=== PATIENT | male | born 1960 | race Caucasian/White ===

== ENCOUNTER 2023-04-18 17:47 | Observation (INO) | payer BC, SELFPAY ==
[2023-04-18] VITALS (14 sets, daily range): BP systolic 125–135; BP diastolic 70–82; PULSE 90–99; RESP 15–23; TEMP 37.1–37.4; O2SAT 95–99; BMI 26.5; BMI 27.0
--- NOTE | 2023-04-18 18:07 | ECG_ITS ---
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
--- NOTE | 2023-04-18 18:17 | CT_ITS ---
[address] [address] Patient Name: ADITHYA DORANTES MRN: [id number] date: 1960 Sex: M Assigned Patient Location: ER Current Patient Location: ED.MAIN Accession/Order Number: [id number] Exam Date: 04/18/2023 18:35 Report Date: 04/18/2023 19:28 At the request of: FREDDIE KIM Procedure: CT angio chest EXAMINATION: CT angio chest, 04/18/2023 6:35 PM EDT HISTORY: Shortness of breath, chest pain COMPARISON: None. TECHNIQUE: CT angiography of the chest was performed with IV contrast. MIP (maximum intensity projection) images or 3D post processing was performed. CT dose reduction technique was used, including Automated Exposure Control. FINDINGS: VASCULATURE/PULMONARY ARTERIES: There is satisfactory opacification of the pulmonary arterial system. There is no evidence of pulmonary embolism. The main pulmonary artery is normal in diameter. The aorta and great vessels appear normal. HEART/PERICARDIUM: Normal. MEDIASTINAL/HILAR LYMPH NODES: No lymphadenopathy. ESOPHAGUS: Normal as visualized. PLEURAL CAVITY: Trace bilateral pleural effusions. No evidence of pneumothorax. LUNGS/AIRWAYS: Bibasilar airspace opacities which may represent subsegmental atelectasis or infiltrates. CHEST WALL/AXILLA/LOWER NECK: Mild bilateral symmetric gynecomastia. VISUALIZED UPPER ABDOMEN: Normal. BONES: No acute process. IMPRESSION: 1. No evidence of pulmonary embolism. 2. Bibasilar subsegmental atelectasis versus infiltrates. Trace bilateral pleural effusions. 3. Mild bilateral symmetric gynecomastia. Electronically authenticated by: ANDREW GAYTAN Date: 04/18/2023 19:28
--- NOTE | 2023-04-18 18:18 | ED_ITS ---
Documented by User: Diego Mark 04/18/23 19:02 HPI - General Adult General Chief complaint: Chest Pain Stated complaint: weakness, chest Time Seen by Provider: 04/18/23 18:06 Source: patient and family Mode of arrival: walk-in Limitations: no limitations History of Present Illness HPI narrative: patient presents with more than one week of fatigue, shortness of breath, pain in the joints of both legs and dry cough. Poor appetite but no nausea, vomiting, diarrhea or abdominal pain. No flank pain. Patient denied chest pain or pressure or tightness. His PMHx is negative and he does not usually take medications. He was evaluated a couple of weeks ago at [facility] for scrotal swelling and pain and was found to have hydrocele. He may also have had epididymitis. he saw a urologist and was placed on extended course of Levaquin, which he has been taking and has a few doses left. told me that he initially had fevers and scrotal pain with the swelling but lately he has felt hot but mostly had night sweats. He said that his scrotal swelling and pain have gone away and everything there is back to normal. Last dose of naproxen around 930am Other symptoms include a rash to the back shortly after starting the Levaquin that went away on its own. he also experienced profound fatigue, lethargy and has difficulty performing ADLs. said he sleeps most fo the day, The pain in his hips and knees is also unusual for him. He has no known exposures but he went camping prior to all of this starting. Related Data Home Medications Medication Instructions Recorded Confirmed levofloxacin 500 mg tablet 500 mg PO Q12H 04/18/23 04/18/23 naproxen 500 mg tablet 500 mg PO Q12H PRN pain 04/18/23 04/18/23 Allergies Allergy/AdvReac Type Severity Reaction Status Date / Time No Known Drug Allergies Allergy Verified 04/18/23 18:06 Exam Narrative Exam Narrative: Nurses notes and vital signs reviewed and patient is not hypoxic. afebrile but feels warm to the touch General: Well-appearing and in no apparent distress. Skin: Warm, dry, no pallor noted. No rash on back or elsewhere. Head: Normocephalic, atraumatic. Neck: Supple, non-tender. Eye: Pupils are equal, round and EOMI. No scleral icterus. Ears, Nose, Mouth, and Throat: Oral mucosa is dry. no oral lesions Cardiovascular: Tachycardia Respiratory: No accessory muscle use or respiratory distress. Lungs are clear to auscultation, no wheezing, rales or rhonchi Chest Wall: no tenderness, crepitus or subcutaneous emphysema Back: No midline thoracic or lumbar vertebral tenderness. No CVA tenderness Musculoskeletal: weakly moves all extremities. No calf or popliteal tenderness, no lower extremity edema/swelling. Pain with movement of the knees and ankles but not with movement of the hips. Soft tissue tenderness of the anterior thigs but not the posterior thighs or popliteal spaces bilaterally. GI: Abdomen is soft, non-distended. Normal bowel sounds. No masses appreciated. No tenderness to palpation. No rebound, guarding, or rigidity noted. Neurological: A&O x4. No cranial nerve dysfunction observed. No truncal ataxia. Moves all extremities. Sensation intact. Psychiatric: Cooperative and interactive. Normal mood and affect. Constitutional Vital Signs - 24 hr 04/18/23 18:02 Temperature 98.7 F Pulse Rate [Monitor] 98 H Respiratory Rate 18 Blood Pressure [Right Arm] 134/74 H Pulse Oximetry 99 Oxygen Delivery Method Room Air Course Vital Signs Vital signs: Vital Signs Temperature 98.7 F 04/18/23 18:02 Pulse Rate 98 H 04/18/23 18:02 Respiratory Rate 18 04/18/23 18:02 Blood Pressure 134/74 H 04/18/23 18:02 Pulse Oximetry 99 04/18/23 18:02 Oxygen Delivery Method Room Air 04/18/23 18:02 Temperature 98.7 F 04/18/23 18:02 Pulse Rate 98 H 04/18/23 18:02 Respiratory Rate 18 04/18/23 18:02 Blood Pressure 134/74 H 04/18/23 18:02 Pulse Oximetry 99 04/18/23 18:02 Oxygen Delivery Method Room Air 04/18/23 18:02 Medical Decision Making MDM Narrative Medical decision making narrative: the recent hydrocele +/- epididymitis then progressing to the current symptoms of fatigue, myalgias and arthralgias with dry cough. No GI symptoms. No urinary symptoms. Has been on Levaquin and taking Naproxen for pain. Patient has been essentially bedridden for the scrotal symptoms and now has dry cough and shortness of breath Respiratory panel obtained. Blood drawn including sepsis markers and blood c ultures. CTA chest ordered to be obtained. He was ordered to receive 2 liters NS IVF and IV Toradol. All results are currently pending. Case will be signed out to the shift physician at 7pm shift change. I will follow up on the results as well. Lab Data Labs: Lab Results 04/18/23 04/18/23 04/18/23 Range/Units 16:18 18:16 18:36 WBC 9.3 (4.0-11.0) 10^3/uL RBC 4.32 L (4.70-6.10) 10^6/uL Hgb 11.8 L (14.0-18.0) g/dL Hct 36.9 L (42.0-54.0) % MCV 85.4 (80.0-94.0) fL MCH 27.3 (25.9-34.0) pg MCHC 32.0 (29.9-35.2) g/dL RDW 13.3 (11.0-15.0) % Plt Count 478 H (150-450) 10^3/uL MPV 8.9 L (9.5-13.5) fL Neut % (Auto) 69.7 (43.0-75.0) % Lymph % (Auto) 14.0 L (20.5-60.0) % [place] % (Auto) 10.6 (1.7-12.0) % Eos % (Auto) 4.3 (0.9-7.0) % Baso % (Auto) 0.8 (0.2-2.0) % Neut # (Auto) 6.5 (1.4-6.5) 10^3/uL Lymph # (Auto) 1.3 (1.2-3.8) 10^3/uL [place] # (Auto) 1.0 H (0.3-0.8) 10^3/uL Eos # (Auto) 0.4 (0.0-0.7) 10^3/uL Baso # (Auto) 0.1 (0.0-0.1) 10^3/uL Abs Immat Gran (auto) 0.06 H (0.00-0.03) 10^3/uL Imm/Tot Granulo (auto) 0.6 H (0.0-0.5) % ESR 89 H (<=20) mm/hr Sodium 140 (136-145) mmol/L Potassium 4.5 (3.5-5.1) mmol/L Chloride 102 (98-107) mmol/L Carbon Dioxide 29.5 (21.0-32.0) mmol/L Anion Gap 13.0 BUN 12.0 (7.0-18.0) mg/dL Creatinine 0.98 (0.70-1.30) mg/dL Est GFR ( Amer) >60 (>=60) Est GFR (Non-Af Amer) >60 (>=60) BUN/Creatinine Ratio 12.2 Glucose 150 H (74-106) mg/dL Lactate 1.3 (0.4-2.0) mmol/L Calcium 8.4 L (8.5-10.1) mg/dL Total Bilirubin 0.3 (0.2-1.0) mg/dL AST 32 (15-37) U/L ALT 66 H (16-63) U/L Alkaline Phosphatase 380 H (46-116) U/L Troponin I High Sens 11.5 (4.0-76.1) pg/mL C-Reactive Protein 128.3 H (<=1.0) mg/dL NT-Pro-B Natriuret Pep 281.0 (<=900.0) pg/mL Total Protein 6.2 L (6.4-8.2) g/dL Albumin 2.3 L (3.4-5.0) g/dL Globulin 3.9 g/dL Albumin/Globulin Ratio 0.6 Adenovirus (PCR) Not detected (NOT DETECTE) C. pneumoniae DNA (PCR) Not detected (NOT DETECTE) Coronavirus Type OC43 Not detected (NOT DETECTE) Coronavirus Type HKU1 Not detected (NOT DETECTE) Coronavirus Type 229E Not detected (NOT DETECTE) Coronavirus Type NL63 Not detected (NOT DETECTE) Human Metapneumovir PCR Not detected (NOT DETECTE) M. pneumoniae (PCR) Not detected (NOT DETECTE) Parainfluenza PCR Not detected (NOT DETECTE) Parainfluenza 2 (PCR) Not detected (NOT DETECTE) Parainfluenza 3 (PCR) Not detected (NOT DETECTE) Parainfluenza 4 (PCR) Not detected (NOT DETECTE) RSV (RT-PCR) Not detected (NOT DETECTE) Entero/Rhino (PCR) Not detected (NOT DETECTE) SARS-CoV-2 (PCR) Not detected (NOT DETECTE) Bordetella pertussis (PCR) Not detected (NOT DETECTE) B parapertussis DNA PCR Not detected (NOT DETECTE) Influenza Type A (PCR) Not detected (NOT DETECTE) Influenza Type B (PCR) Not detected (NOT DETECTE) Discharge Plan Discharge Chief Complaint: Chest Pain Clinical Impression: Shortness of breath, Bilateral pneumonia Patient Disposition: Admitted as Observation Time of Disposition Decision: 20:10 Condition: Good Prescriptions / Home Meds: No Action levofloxacin 500 mg tablet 500 mg PO Q12H naproxen 500 mg tablet 500 mg PO Q12H PRN (Reason: pain) Additional Instructions: Under Dr Marroquin Referrals: CATHERINE NOGUERA [Primary Care Provider] - 1 week Documented by User: Virginie Messer MD 04/18/23 20:10 HPI - General Adult General Chief complaint: Chest Pain Stated complaint: weakness, chest Time Seen by Provider: 04/18/23 18:06 Related Data Home Medications Medication Instructions Recorded Confirmed levofloxacin 500 mg tablet 500 mg PO Q12H 04/18/23 04/18/23 naproxen 500 mg tablet 500 mg PO Q12H PRN pain 04/18/23 04/18/23 Allergies Allergy/AdvReac Type Severity Reaction Status Date / Time No Known Drug Allergies Allergy Verified 04/18/23 18:06 Exam Constitutional Vital Signs - 24 hr 04/18/23 18:02 Temperature 98.7 F Pulse Rate [Monitor] 98 H Respiratory Rate 18 Blood Pressure [Right Arm] 134/74 H Pulse Oximetry 99 Oxygen Delivery Method Room Air Course Vital Signs Vital signs: Vital Signs Temperature 98.7 F 04/18/23 18:02 Pulse Rate 98 H 04/18/23 18:02 Respiratory Rate 18 04/18/23 18:02 Blood Pressure 134/74 H 04/18/23 18:02 Pulse Oximetry 99 04/18/23 18:02 Oxygen Delivery Method Room Air 04/18/23 18:02 Temperature 98.7 F 04/18/23 18:02 Pulse Rate 98 H 04/18/23 18:02 Respiratory Rate 18 04/18/23 18:02 Blood Pressure 134/74 H 04/18/23 18:02 Pulse Oximetry 99 04/18/23 18:02 Oxygen Delivery Method Room Air 04/18/23 18:02 Medical Decision Making MDM Narrative Medical decision making narrative: the recent hydrocele +/- epididymitis then progressing to the current symptoms of fatigue, myalgias and arthralgias with dry cough. No GI symptoms. No urinary symptoms. Has been on Levaquin and taking Naproxen for pain. Patient has been essentially bedridden for the scrotal symptoms and now has dry cough and shortness of breath Respiratory panel obtained. Blood drawn including sepsis markers and blood cultures. CTA chest ordered to be obtained. He was ordered to receive 2 liters NS IVF and IV Toradol. All results are currently pending. Case will be signed out to the shift physician at 7pm shift change. I will follow up on the results as well. Dr Messer : transfer of care at 7 PM CBC shows leukocytosis but the CRP and ESR level related which is a sign of inflammatory process, the patient CT under of the chest shows bilateral infiltrates with effusion mildly right now the patient will be treated for pneumonia bilaterally with vancomycin and ceftriaxone The patient will be admitted for further evaluation Patient admitted as observation under Dr. Marroquin and discussed with Dr Keating Lab Data Labs: Lab Results 04/18/23 04/18/23 04/18/23 Range/Units 16:18 18:16 18:36 WBC 9.3 (4.0-11.0) 10^3/uL RBC 4.32 L (4.70-6.10) 10^6/uL Hgb 11.8 L (14.0-18.0) g/dL Hct 36.9 L (42.0-54.0) % MCV 85.4 (80.0-94.0) fL MCH 27.3 (25.9-34.0) pg MCHC 32.0 (29.9-35.2) g/dL RDW 13.3 (11.0-15.0) % Plt Count 478 H (150-450) 10^3/uL MPV 8.9 L (9.5-13.5) fL Neut % (Auto) 69.7 (43.0-75.0) % Lymph % (Auto) 14.0 L (20.5-60.0) % [place] % (Auto) 10.6 (1.7-12.0) % Eos % (Auto) 4.3 (0.9-7.0) % Baso % (Auto) 0.8 (0.2-2.0) % Neut # (Auto) 6.5 (1.4-6.5) 10^3/uL Lymph # (Auto) 1.3 (1.2-3.8) 10^3/uL [place] # (Auto) 1.0 H (0.3-0.8) 10^3/uL Eos # (Auto) 0.4 (0.0-0.7) 10^3/uL Baso # (Auto) 0.1 (0.0-0.1) 10^3/uL Abs Immat Gran (auto) 0.06 H (0.00-0.03) 10^3/uL Imm/Tot Granulo (auto) 0.6 H (0.0-0.5) % ESR 89 H (<=20) mm/hr Sodium 140 (136-145) mmol/L Potassium 4.5 (3.5-5.1) mmol/L Chloride 102 (98-107) mmol/L Carbon Dioxide 29.5 (21.0-32.0) mmol/L Anion Gap 13.0 BUN 12.0 (7.0-18.0) mg/dL Creatinine 0.98 (0.70-1.30) mg/dL Est GFR ( Amer) >60 (>=60) Est GFR (Non-Af Amer) >60 (>=60) BUN/Creatinine Ratio 12.2 Glucose 150 H (74-106) mg/dL Lactate 1.3 (0.4-2.0) mmol/L Calcium 8.4 L (8.5-10.1) mg/dL Total Bilirubin 0.3 (0.2-1.0) mg/dL AST 32 (15-37) U/L ALT 66 H (16-63) U/L Alkaline Phosphatase 380 H (46-116) U/L Troponin I High Sens 11.5 (4.0-76.1) pg/mL C-Reactive Protein 128.3 H (<=1.0) mg/dL NT-Pro-B Natriuret Pep 281.0 (<=900.0) pg/mL Total Protein 6.2 L (6.4-8.2) g/dL Albumin 2.3 L (3.4-5.0) g/dL Globulin 3.9 g/dL Albumin/Globulin Ratio 0.6 Adenovirus (PCR) Not detected (NOT DETECTE) C. pneumoniae DNA (PCR) Not detected (NOT DETECTE) Coronavirus Type OC43 Not detected (NOT DETECTE) Coronavirus Type HKU1 Not detected (NOT DETECTE) Coronavirus Type 229E Not detected (NOT DETECTE) Coronavirus Type NL63 Not detected (NOT DETECTE) Human Metapneumovir PCR Not detected (NOT DETECTE) M. pneumoniae (PCR) Not detected (NOT DETECTE) Parainfluenza PCR Not detected (NOT DETECTE) Parainfluenza 2 (PCR) Not detected (NOT DETECTE) Parainfluenza 3 (PCR) Not detected (NOT DETECTE) Parainfluenza 4 (PCR) Not detected (NOT DETECTE) RSV (RT-PCR) Not detected (NOT DETECTE) Entero/Rhino (PCR) Not detected (NOT DETECTE) SARS-CoV-2 (PCR) Not detected (NOT DETECTE) Bordetella pertussis (PCR) Not detected (NOT DETECTE) B parapertussis DNA PCR Not detected (NOT DETECTE) Influenza Type A (PCR) Not detected (NOT DETECTE) Influenza Type B (PCR) Not detected (NOT DETECTE) Discharge Plan Discharge Chief Complaint: Chest Pain Clinical Impression: Shortness of breath, Bilateral pneumonia Patient Disposition: Admitted as Observation Time of Disposition Decision: 20:10 Condition: Good Prescriptions / Home Meds: No Action levofloxacin 500 mg tablet 500 mg PO Q12H naproxen 500 mg tablet 500 mg PO Q12H PRN (Reason: pain) Additional Instructions: Under Dr Marroquin Referrals: CATHERINE NOGUERA [Primary Care Provider] - 1 week
[2023-04-18 18:44] LABS: Adenovirus NOT DETECTED (NOT DETECTE); Bordetella parapertussis NOT DETECTED (NOT DETECTE); Coronavirus 229E NOT DETECTED (NOT DETECTE); Coronavirus HKU1 NOT DETECTED (NOT DETECTE); Coronavirus NL63 NOT DETECTED (NOT DETECTE); Coronavirus OC43 NOT DETECTED (NOT DETECTE); Human Metapneumovirus NOT DETECTED (NOT DETECTE); Human Rhinovirus/Enterovirus NOT DETECTED (NOT DETECTE); Influenza A NOT DETECTED (NOT DETECTE); Influenza B NOT DETECTED (NOT DETECTE); Mycoplasma pneumoniae NOT DETECTED (NOT DETECTE); Parainfluenza Virus 1 NOT DETECTED (NOT DETECTE); Parainfluenza Virus 2 NOT DETECTED (NOT DETECTE); Parainfluenza Virus 3 NOT DETECTED (NOT DETECTE); Parainfluenza Virus 4 NOT DETECTED (NOT DETECTE); Respiratory Syncytial Virus NOT DETECTED (NOT DETECTE); SARS-CoV-2 NOT DETECTED (NOT DETECTE)
[2023-04-18 18:46] LABS: Basophils Absolute Auto 0.1 10^3/uL (0.0-0.1); Basophils Percent Auto 0.8 % (0.2-2.0); Eosinophils Absolute Auto 0.4 10^3/uL (0.0-0.7); Eosinophils Percent Auto 4.3 % (0.9-7.0); Hematocrit 36.9 % (42.0-54.0); Hemoglobin 11.8 g/dL (14.0-18.0); Immature Granulocytes Abs Auto 0.06 10^3/uL (0.00-0.03); Immature Granulocytes Pct Auto 0.6 % (0.0-0.5); Lymphocytes Absolute Auto 1.3 10^3/uL (1.2-3.8); Mean Corpuscular Hemoglobin 27.3 pg (25.9-34.0); Mean Corpuscular Volume 85.4 fL (80.0-94.0); Mean Platelet Volume 8.9 fL (9.5-13.5); Monocytes Percent Auto 10.6 % (1.7-12.0); Neutrophils Absolute Auto 6.5 10^3/uL (1.4-6.5); Neutrophils Percent Auto 69.7 % (43.0-75.0); Platelet Count 478 10^3/uL (150-450); Red Blood Count 4.32 10^6/uL (4.70-6.10); Red Cell Distribution Width 13.3 % (11.0-15.0); White Blood Count 9.3 10^3/uL (4.0-11.0)
--- NOTE | 2023-04-18 18:47 | PC.NURSE ---
pt states having pain from his waist down both legs. pt does report having chest pain last week and was seen at [facility]
[2023-04-18 18:58] LABS: Erythrocyte Sedimentation Rate 89 mm/hr (<=20)
[2023-04-18] MEDS: 0.9 % SODIUM CHLORIDE 1,000 ML 999 ML IV (18:58)
[2023-04-18 19:01] LABS: C Reactive Protein 128.3 mg/dL (<=1.0)
[2023-04-18 19:01] LABS: Lactate/Lactic Acid 1.3 mmol/L (0.4-2.0)
[2023-04-18 19:04] LABS: Troponin I High Sensitivity 11.5 pg/mL (4.0-76.1)
[2023-04-18 19:10] LABS: Alanine Aminotransferase 66 U/L (16-63); Albumin Globulin Ratio 0.6; Albumin Level 2.3 g/dL (3.4-5.0); Alkaline Phosphatase 380 U/L (46-116); Aspartate Amino Transferase 32 U/L (15-37); BUN Creatinine Ratio 12.2; Bilirubin Total 0.3 mg/dL (0.2-1.0); Calcium 8.4 mg/dL (8.5-10.1); Carbon Dioxide 29.5 mmol/L (21.0-32.0); Chloride 102 mmol/L (98-107); Estimated GFR (African America >60 (>=60); Estimated GFR (Non-African Ame >60 (>=60); Globulin 3.9 g/dL; Glucose 150 mg/dL (74-106); Potassium 4.5 mmol/L (3.5-5.1); Sodium 140 mmol/L (136-145); Total Protein 6.2 g/dL (6.4-8.2)
[2023-04-18] MEDS: CEFTRIAXONE 1,000 MG in 0.9 % SODIUM CHLORIDE 50 ML 100 MG IV (20:43)
[2023-04-18] MEDS: VANCOMYCIN HCL 1,000 MG in 0.9 % SODIUM CHLORIDE 250 ML 250 MG IV (20:44)
--- NOTE | 2023-04-19 00:45 | CA_ITS ---
Patient: ADITHYA DORANTES Exam Date: 04/19/2023 : 1960 Gender:M Ordering : SHANNON Hirsch SISTER Admission #: [id number] Family : RAFAT LOPEZ . Order #: [id number] CLICK HERE TO VIEW EXAM ECHOCARDIOGRAM REPORT PROCEDURE: CA ECHO DOPPLER COMPLETE INDICATIONS: Chest pain, WYATT COMPARISON: None. DESCRIPTION: COMPLETE ECHOCARDIOGRAM Real-time transthoracic echocardiography with 2D, M-mode, spectral and color flow Doppler performed. QUALITY: Technical quality was good. LEFT VENTRICLE: Normal chamber size. Normal left ventricular wall thickness. LV EF: Global left ventricular systolic function is normal. Calculated left ventricular ejection fraction is 61% DIASTOLIC: Normal diastolic function. ATRIAL SEPTUM: Inadequately seen. LEFT ATRIUM: Normal chamber size. RIGHT ATRIUM: Normal chamber size. RIGHT VENTRICLE: Normal chamber size. Normal right ventricular systolic function. TRICUSPID VALVE: Normal mobility and thickness. No stenosis with trivial regurgitation. Mild pulmonary hypertension. RVSP 40mmHg MITRAL VALVE: Normal mobility and thickness. No evidence of mitral valve stenosis. There is no mitral annular calcification. Trivial mitral regurgitation. AORTIC VALVE: Normal trileaflet appearance. No visible sclerosis. Normal leaflet mobility. No evidence of aortic valve stenosis. Trivial aortic regurgitation. AORTIC ROOT: Normal diameter and appearance. PULMONIC VALVE: Normal thickness and mobility. No stenosis. Trivial regurgitation. PERICARDIUM: No evidence of pericardial effusion. IVC: Collapses with inspirations. Normal size. CONCLUSION: Global left ventricular systolic function is normal; visually estimated ejection fraction is 60 to 65%. The right ventricle is normal in size and systolic function. Normal diastolic function. Mildly elevated right ventricular systolic pressure. No significant valvular abnormalities. Adult Echocardiography Procedure Report Left Ventricle LVEDD (3.7 - 5.6 cm): 4.87 cm LVESD (2.2 - 4.0 cm): 3.09 cm LVIVS thickness (0.6 - 1.2 cm): 9.25 mm LVPW thickness (0.5 - 1.0 cm): 9.98 mm LVOT Max Gradient: 5 mm[Hg] Peak Velocity (LVOT): 107.00 cm/s Mean Velocity (LVOT): 70.00 cm/s LVOT Diameter 2.10 cm Left Ventricular Ejection Fraction: 66.10 % Left Atrium Left Atrium Systolic Dimension: 3.80 cm Mitral Valve MV E to A Ratio: 1.10 Mitral Valve A-Wave Peak Velocity: 71.60 cm/s Mitral Valve E-Wave Peak Velocity: 78.50 cm/s Right Ventricle Aorta AO Root Diam: 3.20 cm Aortic Valve AoV Area (Peak Roby): 2.76 cm2 AoV Area (VTI): 2.99 cm2 Peak Velocity(Antegrade Flow): 134.00 cm/s Peak Gradient(Antegrade Flow): 7 mm[Hg] Mean Velocity(Antegrade Flow): 86.90 cm/s Mean Gradient(Antegrade Flow): 4 mm[Hg] Velocity Time Integral: 24.20 cm Tricuspid Valve Peak Velocity (Regurgitant Flow): 302.00 cm/s Peak Velocity: 67.10 cm/s Pulmonic Valve Peak Velocity: 99.10 cm/s, 106.00 cm/s Peak Gradient: 4 mm[Hg] Right Atrium Dictated by: Vernell Page M.D. on 04/20/2023 at 13:37 Approved by: Vernell Page M.D. on 04/20/2023 at 13:40
--- NOTE | 2023-04-19 00:58 | W.PM.TELEPN ---
Progress Note: Subjective Subjective Interval history: generalized weakness, malae, SOB HPI: this is a 63 yo usualy helathy WM who presents with above complaints. The patient endorses more than one week of fatigue, shortness of breath, pain in the joints of both legs and dry cough.? Poor appetite but no nausea, vomiting, diarrhea or abdominal pain. No flank pain.? Patient denied chest pain or pressure or tightness.? He was evaluated a couple of weeks ago at [facility] for scrotal swelling and pain and was found to have hydrocele.? He may also have had epididymitis. he saw a urologist and was placed on extended course of Levaquin, which he has been taking and has a few doses left. told me that he initially had fevers and scrotal pain with the swelling but lately he has felt hot but mostly had night sweats.? He said that his scrotal swelling and pain have gone away and everything there is back to normal. Last dose of naproxen around 930am Other symptoms include a rash to the back shortly after starting the Levaquin that went away on its own. he also experienced profound fatigue, lethargy and has difficulty performing ADLs.? said he sleeps most fo the day,? The pain in his hips and knees is also unusual for him. He has no known exposures but he went camping prior to all of this starting. Evaluation in ED significant for finding of B/P pulmonary infiltrates, significantly elevated ESR/CRP. Exam Narrative Exam Narrative: NAD, pleasant, lucid cooperative. Neck supple, thyroid not enlarged, LNs not palpated Lungs - coarse BSs B/L Heart - S1, S2 - no additional murmurs ABd - S/NT, ND, + BSs Ext - ++ B/L pitting edema Neuro - CN II - XII intact, no focal deficits Constitutional Vital Signs - 24 hr 04/18/23 18:02 04/18/23 17:58 04/18/23 18:00 Temperature 98.7 F Pulse Rate 99 H 97 H Pulse Rate [Monitor] 98 H Respiratory Rate 18 17 16 Blood Pressure Blood Pressure [Right Arm] 134/74 H Pulse Oximetry 99 98 Oxygen Delivery Method Room Air 04/18/23 18:01 04/18/23 19:32 04/18/23 19:40 Temperature Pulse Rate 91 H 90 91 H Pulse Rate [Monitor] Respiratory Rate 15 16 20 Blood Pressure 134/74 H Blood Pressure [Right Arm] Pulse Oximetry 98 96 98 Oxygen Delivery Method 04/18/23 19:44 04/18/23 19:45 04/18/23 20:00 Temperature Pulse Rate 92 H 94 H 93 H Pulse Rate [Monitor] Respiratory Rate 23 Blood Pressure 133/82 H 135/77 H Blood Pressure [Right Arm] Pulse Oximetry 98 96 95 Oxygen Delivery Method 04/18/23 20:30 04/18/23 21:00 04/18/23 21:34 Temperature 99.3 F Pulse Rate 92 H 94 H 90 Pulse Rate [Monitor] Respiratory Rate 20 21 16 Blood Pressure 128/79 H 125/75 H Blood Pressure [Right Arm] 126/70 H Pulse Oximetry 95 95 97 Oxygen Delivery Method Room Air 04/18/23 21:15 04/18/23 21:33 04/18/23 21:33 Temperature 99.3 F 99.3 F Pulse Rate 90 Pulse Rate [Monitor] 90 Respiratory Rate 16 16 Blood Pressure Blood Pressure [Right Arm] 126/70 H Pulse Oximetry 97 97 Oxygen Delivery Method Room Air Room Air Room Air Progress Note: Objective Labs Labs: Short CBC 04/18/23 Range/Units 16:18 WBC 9.3 (4.0-11.0) 10^3/uL Hgb 11.8 L (14.0-18.0) g/dL Hct 36.9 L (42.0-54.0) % Plt Count 478 H (150-450) 10^3/uL BMP 04/18/23 16:18 Sodium 140 Potassium 4.5 Chloride 102 Carbon Dioxide 29.5 BUN 12.0 Creatinine 0.98 Glucose 150 H Calcium 8.4 L Liver Function 04/18/23 Range/Units 16:18 Total Bilirubin 0.3 (0.2-1.0) mg/dL AST 32 (15-37) U/L ALT 66 H (16-63) U/L Alkaline Phosphatase 380 H (46-116) U/L Albumin 2.3 L (3.4-5.0) g/dL Progress Note: A&P Assessment and Plan (1) Malaise: Assessment and Plan: M/P related to B /L PNA. Atypical? - Continue with ABXs (Vanco/Rocephin/Azithro) - F/U Cxs - symptoms control (2) Transaminitis: Assessment and Plan: related to above? Going to check hepatitis panel. (3) Shortness of breath: Assessment and Plan: as above, continue with O2 as needed Going to order ECHo looking for signs of SCF (4) Bilateral pneumonia: Assessment and Plan: as above Telemedicine Attestation Telemedicine Attestation I conducted this encounter from [[place]] via secure live, [id number] video conference with the patient, CHARGE TEST-CHARGES located at [facility] with [PNA]. Prior to the interview, the risks and benefits of telemedicine were discussed with the patient and verbal consent was obtained.
[2023-04-19 01:44] LABS: Alanine Aminotransferase 58 U/L (16-63); Albumin Globulin Ratio 0.4; Albumin Level 1.9 g/dL (3.4-5.0); Alkaline Phosphatase 309 U/L (46-116); Anion Gap 9.2; Aspartate Amino Transferase 30 U/L (15-37); BUN Creatinine Ratio 10.7; Bilirubin Total 0.3 mg/dL (0.2-1.0); Calcium 8.3 mg/dL (8.5-10.1); Carbon Dioxide 28.8 mmol/L (21.0-32.0); Chloride 103 mmol/L (98-107); Estimated GFR (African America >60 (>=60); Estimated GFR (Non-African Ame >60 (>=60); Globulin 4.3 g/dL; Glucose 161 mg/dL (74-106); Sodium 137 mmol/L (136-145); Total Protein 6.2 g/dL (6.4-8.2)
[2023-04-19] MEDS: 0.9 % SODIUM CHLORIDE 1,000 ML 100 ML IV ×2 (02:16→12:57)
[2023-04-19] MEDS: AZITHROMYCIN 500 MG in 0.9 % SODIUM CHLORIDE 250 ML 250 MG IV (02:17)
[2023-04-19] MEDS: LEVOFLOXACIN 500 MG TABLET PO (02:18)
[2023-04-19] MEDS: OMEPRAZOLE 40 MG CAPSULE.DR PO ×2 (02:18→23:48)
[2023-04-19] MEDS: CEFTRIAXONE 1,000 MG in 0.9 % SODIUM CHLORIDE 50 ML 100 MG IV ×2 (04:23→04:24)
[2023-04-19 05:26] LABS: Alanine Aminotransferase 59 U/L (16-63); Albumin Globulin Ratio 0.4; Albumin Level 1.9 g/dL (3.4-5.0); Alkaline Phosphatase 325 U/L (46-116); Anion Gap 12.6; Aspartate Amino Transferase 34 U/L (15-37); BUN Creatinine Ratio 10.8; Bilirubin Total 0.3 mg/dL (0.2-1.0); Calcium 8.3 mg/dL (8.5-10.1); Carbon Dioxide 25.7 mmol/L (21.0-32.0); Chloride 104 mmol/L (98-107); Estimated GFR (African America >60 (>=60); Estimated GFR (Non-African Ame >60 (>=60); Globulin 4.4 g/dL; Glucose 124 mg/dL (74-106); Potassium 4.3 mmol/L (3.5-5.1); Sodium 138 mmol/L (136-145); Total Protein 6.3 g/dL (6.4-8.2)
[2023-04-19 05:35] VITALS: BP 130/67; PULSE 96; RESP 18; TEMP 36.9; O2SAT 95
[2023-04-19 09:05] VITALS: PULSE 80; RESP 16
--- NOTE | 2023-04-19 09:05 | PM.HP ---
Documented by User: Faina Marroquin DO 04/19/23 16:09 H&P: HPI History of Present Illness Chief complaint: weakness, chest, BILATERAL PNEUMONIA Narrative: patient is a 63-year-old male who is otherwise healthy until about three weeks ago when he was seen and treated for epididymitis with Levaquin. The week leading up to his episode of epididymitis he reports started feeling just general fatigue and some joint aches and pains. This is gotten worse over the last couple weeks. He denies any fevers but says he has been getting some sweats at times his knees have significant aches and hips have significant aches. He is a very healthy individual and runs and bikes and he has not been able to do this. He reports he has been napping more than usual he denies any tick bites but has been camping recently. He did experience a rash on his upper back which she thought was mostly related to the Levaquin and it was itchy but seems to have resolved since that time. He has also developed some what he would describe his deconditioning with some shortness of breath along with the weakness. He denies any chest pain or prior heart history he has never had a blood clot in the past and no other new medications. Review of Systems ROS Narrative ROS: a complete review of systems were reviewed with patient and are positive as below or listed in History of Chief Complaint. General: no fever, chills, night sweats Head: no headache, trauma, visual changes, nausea or vomiting Skin: no reported rashes, itching or sores Eyes: no blurriness of vision Ears: no reported hearing loss, vertigo, earache, or tinnitus Throat: no sore throat, hoarseness, swelling of neck, or tongue pain Heart: no chest pain Lungs: shortness of breath, dry cough GI: no diarrhea or vomiting/nausea Urinary: no urinary urgency, frequency or pain Neuro: no numbness or tingling HEM: no bleeding issues or bruising ENDO: no thyroid problems Psych: no anxiety or depression Meds Home Medications and Allergies Home Medications Medication Instructions Recorded Confirmed Type levofloxacin 500 mg tablet 500 mg PO Q12H 04/18/23 04/19/23 History naproxen 500 mg tablet 500 mg PO Q12H PRN pain 04/18/23 04/18/23 History Allergies Allergy/AdvReac Type Severity Reaction Status Date / Time No Known Drug Allergies Allergy Verified 04/18/23 18:06 Exam Narrative Exam Narrative: General: Patient is alert, and oriented to person, place and time with normal affect, proper hygiene Skin: no visible rashes, or ulcers Head: atraumatic, acephalic Eyes: PERRLA, no nystagmus present, conjunctiva clear, no scleral icterus Ears: normal Tympanic Membrane, normal gross auditory acuity Nose: symmetric, no discharge, no maxillary or frontal sinus tenderness Mouth/Throat: no erythema, exudate, or tonsillar enlargement, normal dentition Neck: no masses palpated, normal thyroid, no JVD or audible carotid bruits Heart: Normal rate and rhythm, no murmurs/rubs/gallops Lungs: no audible wheezes, crackles and normal breath sounds all lung garcia Abdomen: Normal audible bowel sounds, no distension, No palpable masses, no organomegaly, no rebound/guarding/ or rigidity Musculoskeletal: muscle atrophy noted, ROM is limited due to being in hospital bed, no swelling bilateral lower extremities Vascular: Normal carotid, radial, femoral, posterior tibial, and dorsalis pedis pulses Lymph: no supraclavicular, axillary, or anterior/posterior cervical adenopathy Neuro: CN II-X grossly intact, normal sensation upper and lower extremities Constitutional Vital Signs - 24 hr 04/18/23 18:02 04/18/23 17:58 04/18/23 18:00 Temperature 98.7 F Pulse Rate 99 H 97 H Pulse Rate [Monitor] 98 H Respiratory Rate 18 17 16 Blood Pressure Blood Pressure [Right Arm] 134/74 H Pulse Oximetry 99 98 Oxygen Delivery Method Room Air 04/18/23 18:01 04/18/23 19:32 04/18/23 19:40 Temperature Pulse Rate 91 H 90 91 H Pulse Rate [Monitor] Respiratory Rate 15 16 20 Blood Pressure 134/74 H Blood Pressure [Right Arm] Pulse Oximetry 98 96 98 Oxygen Delivery Method 04/18/23 19:44 04/18/23 19:45 04/18/23 20:00 Temperature Pulse Rate 92 H 94 H 93 H Pulse Rate [Monitor] Respiratory Rate 19 22 23 Blood Pressure 133/82 H 135/77 H Blood Pressure [Right Arm] Pulse Oximetry 98 96 95 Oxygen Delivery Method 04/18/23 20:30 04/18/23 21:00 04/18/23 21:34 Temperature 99.3 F Pulse Rate 92 H 94 H 90 Pulse Rate [Monitor] Respiratory Rate 20 21 16 Blood Pressure 128/79 H 125/75 H Blood Pressure [Right Arm] 126/70 H Pulse Oximetry 95 95 97 Oxygen Delivery Method Room Air 04/18/23 21:15 04/18/23 21:33 04/18/23 21:33 Temperature 99.3 F 99.3 F Pulse Rate 90 Pulse Rate [Monitor] 90 Respiratory Rate 16 16 Blood Pressure Blood Pressure [Right Arm] 126/70 H Pulse Oximetry 97 97 Oxygen Delivery Method Room Air Room Air Room Air 04/19/23 05:35 Temperature 98.5 F Pulse Rate 96 H Pulse Rate [Monitor] Respiratory Rate 18 Blood Pressure Blood Pressure [Right Arm] 130/67 H Pulse Oximetry 95 Oxygen Delivery Method Room Air Results Labs Labs: Short CBC 04/18/23 Range/Units 16:18 WBC 9.3 (4.0-11.0) 10^3/uL Hgb 11.8 L (14.0-18.0) g/dL Hct 36.9 L (42.0-54.0) % Plt Count 478 H (150-450) 10^3/uL BMP 04/18/23 04/19/23 04/19/23 16:18 01:20 04:45 Sodium 140 137 138 Potassium 4.5 4.0 4.3 Chloride 102 103 104 Carbon Dioxide 29.5 28.8 25.7 BUN 12.0 11.0 10.0 Creatinine 0.98 1.03 0.93 Glucose 150 H 161 H 124 H Calcium 8.4 L 8.3 L 8.3 L Liver Function 04/18/23 04/19/23 04/19/23 Range/Units 16:18 01:20 04:45 Total Bilirubin 0.3 0.3 0.3 (0.2-1.0) mg/dL AST 32 30 34 (15-37) U/L ALT 66 H 58 59 (16-63) U/L Alkaline Phosphatase 380 H 309 H 325 H (46-116) U/L Albumin 2.3 L 1.9 L 1.9 L (3.4-5.0) g/dL Assessment and Plan Assessment and Plan (1) Myalgia: Assessment and Plan: will add a creatinine kinase level, concern for possible rhabdo, could also be lines disease active. We'll place on doxycycline. Elevated ESR and CRP more indicative of inflammatory processes will also try on Solu-Medrol (2) Bilateral pneumonia: Assessment and Plan: CTA showed bibasilar infiltrates 1st atelectasis, I am more leaning towards atelectasis as patient has a normal white blood cell count and viral cultures have been negative and patient is not hypoxic. He was originally started out on Rocephin and azithromycin had also received a dose of vancomycin in the Emergency Room. We'll stop all of these given started on by mouth doxycycline for presumed Lyme's disease. (3) Transaminitis: Assessment and Plan: this was on initial presentation but has since resolved (4) Shortness of breath: Assessment and Plan: CTA was negative for pulmonary emboli, normal pro BNP, normal troponin, echocardiogram pending but prelim showed normal ejection fraction I believe that the shortness of breath is related more to deconditioning. Plan patient is a full code Patient will be placed on Lovenox for deep vein thrombosis prophylaxis Patient is in observation status and is not expected to stay more than to midnights Documented by User: Jose Alaniz 04/19/23 09:56 H&P: HPI History of Present Illness Chief complaint: weakness, chest, BILATERAL PNEUMONIA Meds Home Medications and Allergies Home Medications Medication Instructions Recorded Confirmed Type levofloxacin 500 mg tablet 500 mg PO Q12H 04/18/23 04/19/23 History naproxen 500 mg tablet 500 mg PO Q12H PRN pain 04/18/23 04/18/23 History Allergies Allergy/AdvReac Type Severity Reaction Status Date / Time No Known Drug Allergies Allergy Verified 04/18/23 18:06 Assessment and Plan Assessment and Plan (1) Myalgia: (2) Bilateral pneumonia: (3) Transaminitis: (4) Shortness of breath: Plan [facility]
[2023-04-19] MEDS: METHYLPREDNISOLONE SOD SUCC PF 40 MG/ML VIAL IVP ×3 (09:29→20:12)
[2023-04-19] MEDS: DOXYCYCLINE MONOHYDRATE 100 MG CAPSULE PO ×2 (09:29→20:13)
[2023-04-19] MEDS: L. ACIDOPHILUS/L.BULGARICUS 1 PACKET GRAN.PACK PO ×2 (09:29→20:14)
--- NOTE | 2023-04-19 12:14 | SWNOTE1 ---
SW met with pt to discuss dc needs. Pt lives at home with his and he is independent at home. Pt has no worries or concerns at this time in regards to dc. SW to follow as needed.
--- NOTE | 2023-04-19 12:42 | CM.NOTE ---
Rounds made with Dr. Marroquin. Dr. Marroquin reviewed tests results and testing ordered to Mr. Taylor. Verbalizes understanding. No plan for discharge today.
[2023-04-19 14:30] VITALS: BP 120/76; PULSE 80; RESP 16; TEMP 36.6; O2SAT 94
[2023-04-19 16:18] VITALS: O2SAT 95
[2023-04-19] MEDS: LACTATED RINGER'S SOLUTION 1,000 ML 125 ML IV ×2 (16:29→23:48)
[2023-04-19 16:30] VITALS: BMI 27.0
[2023-04-19 16:55] LABS: Creatine Kinase 52 U/L (39-308)
[2023-04-19 20:54] VITALS: O2SAT 96
[2023-04-19 21:19] VITALS: BP 120/63; PULSE 81; RESP 18; TEMP 36.5; O2SAT 93
[2023-04-19] MEDS: ENOXAPARIN SODIUM 40 MG/0.4 ML SYRINGE SUBQ (23:48)
[2023-04-20] MEDS: METHYLPREDNISOLONE SOD SUCC PF 40 MG/ML VIAL IVP ×2 (02:06→07:40)
[2023-04-20 04:54] LABS: Basophils Percent Auto 0.2 % (0.2-2.0); Hematocrit 33.4 % (42.0-54.0); Hemoglobin 10.6 g/dL (14.0-18.0); Immature Granulocytes Abs Auto 0.09 10^3/uL (0.00-0.03); Immature Granulocytes Pct Auto 0.6 % (0.0-0.5); Lymphocytes Absolute Auto 0.9 10^3/uL (1.2-3.8); Lymphocytes Percent Auto 5.7 % (20.5-60.0); Mean Corpuscular HGB Conc 31.7 g/dL (29.9-35.2); Mean Corpuscular Hemoglobin 27.2 pg (25.9-34.0); Mean Corpuscular Volume 85.6 fL (80.0-94.0); Mean Platelet Volume 9.1 fL (9.5-13.5); Monocytes Absolute Auto 0.3 10^3/uL (0.3-0.8); Monocytes Percent Auto 2.3 % (1.7-12.0); Neutrophils Absolute Auto 13.6 10^3/uL (1.4-6.5); Neutrophils Percent Auto 91.2 % (43.0-75.0); Platelet Count 439 10^3/uL (150-450); Red Cell Distribution Width 13.2 % (11.0-15.0)
[2023-04-20 05:07] LABS: HBsAg Screen Negative (Negative); HCV Ab Non Reactive (Non Reactive); Hep A Ab, IgM Negative (Negative); Hep B Core Ab, IgM Negative (Negative)
[2023-04-20 05:19] LABS: Alanine Aminotransferase 55 U/L (16-63); Albumin Globulin Ratio 0.4; Albumin Level 1.8 g/dL (3.4-5.0); Alkaline Phosphatase 290 U/L (46-116); Aspartate Amino Transferase 20 U/L (15-37); BUN Creatinine Ratio 15.9; Bilirubin Total 0.2 mg/dL (0.2-1.0); Calcium 8.8 mg/dL (8.5-10.1); Carbon Dioxide 25.9 mmol/L (21.0-32.0); Chloride 104 mmol/L (98-107); Estimated GFR (African America >60 (>=60); Estimated GFR (Non-African Ame >60 (>=60); Globulin 4.3 g/dL; Glucose 262 mg/dL (74-106); Potassium 3.9 mmol/L (3.5-5.1); Sodium 137 mmol/L (136-145); Total Protein 6.1 g/dL (6.4-8.2)
[2023-04-20 05:20] LABS: Troponin I High Sensitivity 8.6 pg/mL (4.0-76.1)
[2023-04-20 05:22] VITALS: BP 123/72; PULSE 75; RESP 18; TEMP 36.4; O2SAT 94
--- NOTE | 2023-04-20 07:00 | XR_ITS ---
[address] [address] Patient Name: ADITHYA DORANTES MRN: [id number] date: 1960 Sex: M Assigned Patient Location: [place] Current Patient Location: [place] Accession/Order Number: [id number] Exam Date: 04/20/2023 05:25 Report Date: 04/20/2023 06:11 At the request of: RAFAT LOPEZ Procedure: XR chest 2V EXAMINATION: XR chest 2V HISTORY: shortness of breath compare to 04/18/23 COMPARISON: 04/18/2023 CT angiogram TECHNIQUE: PA and lateral FINDINGS: LUNGS: No significant pulmonary parenchymal abnormalities. VASCULATURE: No increased pulmonary vasculature. PLEURA: No pneumothorax, effusion, or pleural thickening. CARDIAC: No cardiomegaly or cardiac silhouette abnormality. MEDIASTINUM: No visible mass or adenopathy. BONES: No fracture or visible bone lesion. OTHER: Negative. IMPRESSION: No acute cardiopulmonary process Electronically authenticated by: ANDI CHRIS Date: 04/20/2023 06:11
[2023-04-20] MEDS: LACTATED RINGER'S SOLUTION 1,000 ML 125 ML IV (07:39)
[2023-04-20] MEDS: L. ACIDOPHILUS/L.BULGARICUS 1 PACKET GRAN.PACK PO (07:40)
[2023-04-20] MEDS: DOXYCYCLINE MONOHYDRATE 100 MG CAPSULE PO (07:40)
[2023-04-20 09:27] LABS: Uric Acid 2.4 mg/dL (3.5-7.2)
--- NOTE | 2023-04-20 10:35 | CM.NOTE ---
and patient's parents at bedside. Dr. Marroquin discussed finding with patient after confirming it was ok to discuss with visitors at bedside. Discussed increased WBC due to steroids and CXR from today was unremarkable. Dr. Marroquin discussed still suspicious for Lyme Disease. Discussed treatment doxycycline and steroids and patient is responding to this treatment. Pt. anticipated d/c today. No identified discharge needs.
--- NOTE | 2023-04-20 11:13 | REH.PTDLY ---
Physical Therapy Daily Note PT Daily Note/Assess Start: 04/20/23 11:12 Freq: Status: Active Protocol: Document 04/20/23 11:12 KAPIL (Rec: 04/20/23 11:13 KAPIL [id number]) Visit Not Completed Visit Not Completed Due to: Pt refusing Other Reason Visit Not Completed Pt states he is fine, doing much better. No need for therapy. Declines all PT services today Physical Therapy Daily Note/Assessment Time In 10:00 Time Out 10:01
--- NOTE | 2023-04-20 11:41 | P.DS_ITS ---
DS: Providers Provider Date of admission: 04/18/23 21:15 Primary care physician: CATHERINE SIMONS Admitting clinician: Gopi Keaitng Consults: 04/18/23 Consult to Validation Specialist Routine 04/19/23 08:55 Physical Therapy Eval and Treat Routine Attending physician on discharge: Faina Marroquin DS: Diagnosis Discharge Diagnosis (1) Myalgia: Assessment and plan: creatinine kinase level was normal, uric acid test normal, high suspicion for Lyme's disease, titer still pending. We'll place on doxycycline 100 mg twice a day ?7 days. Elevated ESR and CRP more indicative of inflammatory processes will also try on Solu-Medrol. patient seemed to improve on both the doxycycline and Solu-Medrol and will continue prednisone and doxycycline for approximately one week as outpatient he is to follow-up closely with his primary care physician. (2) Bilateral pneumonia: Assessment and plan: CTA showed bibasilar infiltrates vs atelectasis, I am more leaning towards atelectasis as patient has a normal white blood cell count and viral cultures have been negative and patient is not hypoxic. He was originally started out on Rocephin and azithromycin had also received a dose of vancomycin in the Emergency Room. We'll stop all of these given started on by mouth doxycycline for presumed Lyme's disease. repeat chest x-ray at the time of discharge showed no acute processes (3) Transaminitis: Assessment and plan: resolved (4) Shortness of breath: Assessment and plan: CTA was negative for pulmonary emboli, normal pro BNP, normal troponin, echocardiogram pending but prelim showed normal ejection fraction I believe that the shortness of breath is related more to deconditioning DS: Summary Hospital Course Hospital Course: symptomatically patient has improved on the IV Solu-Medrol and IV doxycycline and will continue doxycycline and prednisone as an outpatient and he will have close follow-up with his primary care physician to discuss results of echocardiogram as well as Lyme's titer Status at Discharge Functional status at discharge: independent ambulation Time Spent with Patient Time attestation: Total time spent providing and/or coordinating discharge services: Quality: Stroke Symptom Onset Unknown: No Exam Narrative Exam Narrative: General: Patient is alert, and oriented to person, place and time with normal affect, proper hygiene Skin: no visible rashes, or ulcers Head: atraumatic, acephalic Eyes: PERRLA, no nystagmus present, conjunctiva clear, no scleral icterus Ears: normal Tympanic Membrane, normal gross auditory acuity Nose: symmetric, no discharge, no maxillary or frontal sinus tenderness Mouth/Throat: no erythema, exudate, or tonsillar enlargement, normal dentition Neck: no masses palpated, normal thyroid, no JVD or audible carotid bruits Heart: Normal rate and rhythm, no murmurs/rubs/gallops Lungs: no audible wheezes, crackles and normal breath sounds all lung garcia Abdomen: Normal audible bowel sounds, no distension, No palpable masses, no organomegaly, no rebound/guarding/ or rigidity Musculoskeletal: no swelling bilateral lower extremities Vascular: Normal carotid, radial, femoral, posterior tibial, and dorsalis pedis pulses Lymph: no supraclavicular, axillary, or anterior/posterior cervical adenopathy Neuro: CN II-X grossly intact, normal sensation upper and lower extremities Constitutional Vital Signs - 24 hr 04/19/23 14:30 04/19/23 16:18 04/19/23 20:54 Temperature 97.9 F Pulse Rate 80 Respiratory Rate 16 Blood Pressure [Left Arm] Blood Pressure [Right Arm] 120/76 H Pulse Oximetry 94 L 95 96 Oxygen Delivery Method Room Air Room Air Room Air 04/19/23 21:19 04/20/23 05:22 Temperature 97.7 F 97.6 F Pulse Rate 81 75 Respiratory Rate 18 18 Blood Pressure [Left Arm] 120/63 H 123/72 H Blood Pressure [Right Arm] Pulse Oximetry 93 L 94 L Oxygen Delivery Method Room Air Room Air DS: Data Data Completed and Pending Labs on day of discharge: Labs from last 24 hours 04/20/23 04/19/23 04/19/23 04:16 16:15 04:45 WBC 15.0 H RBC 3.90 L Hgb 10.6 L Hct 33.4 L MCV 85.6 MCH 27.2 MCHC 31.7 RDW 13.2 Plt Count 439 MPV 9.1 L Neut % (Auto) 91.2 H Lymph % (Auto) 5.7 L Jewell % (Auto) 2.3 Eos % (Auto) 0.0 L Baso % (Auto) 0.2 Neut # (Auto) 13.6 H Lymph # (Auto) 0.9 L Jewell # (Auto) 0.3 Eos # (Auto) 0.0 Baso # (Auto) 0.0 Abs Immat Gran (auto) 0.09 H Imm/Tot Granulo (auto) 0.6 H Sodium 137 Potassium 3.9 Chloride 104 Carbon Dioxide 25.9 Anion Gap 11.0 BUN 13.0 Creatinine 0.82 Est GFR ( Amer) >60 Est GFR (Non-Af Amer) >60 BUN/Creatinine Ratio 15.9 Glucose 262 H Uric Acid 2.4 L Calcium 8.8 Total Bilirubin 0.2 AST 20 ALT 55 Alkaline Phosphatase 290 H Total Creatine Kinase 52 Troponin I High Sens 8.6 Total Protein 6.1 L Albumin 1.8 L Globulin 4.3 Albumin/Globulin Ratio 0.4 Hepatitis A IgM Ab Negative Hep Bs Antigen Negative Hep B Core IgM Ab Negative Hepatitis C Antibody Non reactive Hepatitis C Interp Comment Discharge Plan Discharge Disposition: Home, Self-Care Condition: Good Discharge Medications: New doxycycline monohydrate 100 mg capsule 100 mg PO BID 7 Days Qty: 14 0RF prednisone 20 mg tablet 20 mg PO DAILY Qty: 7 0RF Discontinued levofloxacin 500 mg tablet 500 mg PO Q12H Rx Instructions: X10 DAYS - STARTED 04/11/23 naproxen 500 mg tablet 500 mg PO Q12H PRN (Reason: pain) Activity: increase activity as tolerated Diet: advance to your usual diet Patient Instructions: Doxycycline (By mouth), Prednisone (By mouth), Lyme Disease (ED), Weakness (DC), Fatigue (DC), Pneumonia (DC) Forms: Portal Instructions Follow Up Appointments: Follow up with Dr. Simons - tuesdayApril 29 at 2:00PM [phone]
--- NOTE | 2023-04-21 13:40 | CM.DCFOLLOWU ---
Person spoke with: patient How are you feeling? well, just tired How is your pain? no pain Did you understand your discharge instructions? yes Do you have any questions about your discharge instructions? no Were you given any prescriptions at discharge? yes Were you able to get your prescriptions filled? yes Do you understand how to take your medications as ordered? yes Do you have any questions about your follow up appointment and do you plan to keep your follow up appointment? no questions and yes keeping follow up Is there anything else that you would like to discuss? no Questions/Comments/Concerns/Other:
[2023-04-21 15:10] LABS: Lyme Total Antibody CIA Negative (Negative)
--- NOTE | 2023-04-25 11:16 | CM.DCFOLLOWU ---
Person spoke with:patient How are you feeling? patient is fluctuating on how he is feeling How is your pain? pain in his legs Did you understand your discharge instructions? yes Do you have any questions about your discharge instructions? no Were you given any prescriptions at discharge? yes Were you able to get your prescriptions filled? yes Do you understand how to take your medications as ordered? yes Do you have any questions about your follow up appointment and do you plan to keep your follow up appointment? no questions, follow up moved up to TuesdayApril 27, going to address leg pain with PCP Is there anything else that you would like to discuss? no Questions/Comments/Concerns/Other:
== END 2023-04-20 13:37 | disposition home or self-care (01) ==
LOC: ER 20:10 → MS 22:32
PROVIDERS: Emergency Medicine; Internal Medicine; Admitting Provider Family Medicine; Emergency Provider Emergency Medicine; PCP Family Medicine; Visit Provider Family Medicine
DX: M79.10 Myalgia, unspecified site (principal); J98.11 Atelectasis; R74.01 Elevation of levels of liver transaminase levels; R06.02 Shortness of breath; Z20.822 Contact with and (suspected) exposure to COVID-19
CPT/HCPCS: 0202U; 36415; 71046; 71275; 80053; 80074; 81003; 82550; 83605; 83880; 84484; 84550; 85025; 85652; 86140; 86618; 87040; 93005; 93306; 94761; 96365; 96366; 96367; 96368; 96372; 96375; 96376; 97162; 99285; G0378; J0456; J2920; J3370; Q3014; Q9967